=== PATIENT | female | born 1970 | race Two or more races ===

== ENCOUNTER 2022-07-17 11:45 | Inpatient (IN) | payer OTHER ==
[~2022-07-17] VITALS: Ht 162.6 cm; Wt 70.8 kg
[2022-07-17] MEDS ORDERED: LEXAPRO5 MG PO (13:44)
[2022-07-23] MEDS ORDERED: ESCITALOPRAM OX10 MG (08:31)
[2022-07-23] MEDS ORDERED: MONTELUKAST SOD10 MG (08:32)
== END 2022-07-23 11:05 | disposition home or self-care (01) | DRG 743 ==
LOC: OB/GYN 07-20 05:58 → O/R 07-20 05:58 → OB/GYN 07-20 07:00
PROVIDERS: ADMIT Specialist; ATTEND Specialist
PROC: 0UT90ZZ Resection of Uterus, Open Approach (ICD-10-PCS; principal; 2022-07-20 07:00)
DX: D25.0 Submucous leiomyoma of uterus (principal); D25.2 Subserosal leiomyoma of uterus; D25.1 Intramural leiomyoma of uterus; N80.03 Adenomyosis of the uterus; Z20.822 Contact with and (suspected) exposure to COVID-19